=== PATIENT | male | born 1975 | race Two or more races ===

== ENCOUNTER → 2020-03-24 | Emergency (ER) | payer MEDICAID, OTHER ==
[~2020-03-24] VITALS: Ht 190.5 cm; Wt 99.8 kg
[~2020-03-24] MED LIST: METO25TA5 PO
[2020-03-24 19:26] VITALS: BP 152/116
== END | disposition left against medical advice (07) ==
LOC: ER 19:20
DX: M25.551 Pain in right hip (principal); M25.552 Pain in left hip; Z53.21 Procedure and treatment not carried out due to patient leaving prior to being seen by health care provider

== ENCOUNTER 2020-03-26 15:42 | Emergency (ER) | payer OTHER ==
[~2020-03-26] VITALS: Ht 190.5 cm; Wt 104.3 kg
[2020-03-26] MEDS ORDERED: cloNIDine HCL 0.1 MG TAB ONE (15:57)
[2020-03-26] MEDS ORDERED: cloNIDine HCL 0.1 MG TAB PO ONE (16:00)
[2020-03-26] MEDS ORDERED: KETOROLAC TROMETH 60MG/2ML VIAL IM ONE (17:30)
[2020-03-26 18:20] VITALS: BP 144/112
[2020-03-26] MEDS ORDERED: METO25TA5 PO (18:34)
== END 2020-03-26 18:41 | disposition home or self-care (01) ==
LOC: ER 15:42
DX: M54.16 Radiculopathy, lumbar region (principal); I10 Essential (primary) hypertension
CPT/HCPCS: 72100; 96372; 99283; J1885

== ENCOUNTER 2020-09-13 16:37 | Emergency (ER) | payer MEDICAID, OTHER ==
[~2020-09-13] VITALS: Ht 190.5 cm; Wt 108.9 kg
[2020-09-13 19:26] VITALS: BP 147/94
== END 2020-09-13 19:48 | disposition home or self-care (01) ==
LOC: ER 16:37
DX: U07.1 COVID-19 (principal); J02.9 Acute pharyngitis, unspecified; J06.9 Acute upper respiratory infection, unspecified; I10 Essential (primary) hypertension
CPT/HCPCS: 36415; 71045; 87426; 99284; U0003

== ENCOUNTER 2021-03-03 17:49 | Emergency (ER) | payer MEDICAID ==
[~2021-03-03] VITALS: Ht 190.5 cm; Wt 99.8 kg
[2021-03-03 19:56] VITALS: BP 158/109
== END 2021-03-03 20:07 | disposition home or self-care (01) ==
LOC: ER 17:49
DX: J06.9 Acute upper respiratory infection, unspecified (principal); I10 Essential (primary) hypertension; Z20.822 Contact with and (suspected) exposure to COVID-19
CPT/HCPCS: 36415; 71045; 87426

== ENCOUNTER 2021-09-25 23:02 | Emergency (ER) | payer MEDICAID ==
[~2021-09-25] VITALS: Ht 190.5 cm; Wt 99.8 kg
[2021-09-26 02:10] VITALS: BP 158/112
== END 2021-09-26 02:49 | disposition home or self-care (01) ==
LOC: ER 23:02
DX: J06.9 Acute upper respiratory infection, unspecified (principal); I10 Essential (primary) hypertension; Z20.822 Contact with and (suspected) exposure to COVID-19
CPT/HCPCS: 36415; 87426

== ENCOUNTER 2023-06-01 15:58 | Emergency (ER) | payer MEDICAID ==
[~2023-06-01] VITALS: Ht 190.5 cm; Wt 104.0 kg
[2023-06-01 16:19] VITALS: BP 130/87; PULSE 86; RESP 22; O2SAT 94
[2023-06-01] MEDS ORDERED: ACETAMINOPHEN 500 MG TAB PO ONE (16:30)
[2023-06-01 16:45] VITALS: TEMP 101.1
== END 2023-06-01 18:35 | disposition left against medical advice (07) ==
LOC: EDBD 15:58 → ER 15:58
DX: R50.9 Fever, unspecified (principal); M79.10 Myalgia, unspecified site; R53.83 Other fatigue; Z53.21 Procedure and treatment not carried out due to patient leaving prior to being seen by health care provider

== ENCOUNTER 2024-03-04 23:52 | Emergency (ER) | payer MEDICAID ==
[~2024-03-04] VITALS: Ht 190.5 cm; Wt 113.3 kg
[2024-03-05 00:16] VITALS: TEMP 97.8; O2SAT 98
[2024-03-05] MEDS ORDERED: CYCL-611 PO (00:48)
[2024-03-05] MEDS ORDERED: HYDR-4902 PO (00:48)
[2024-03-05] MEDS: DexAMETHasone SOD PHOS 10MG/1ML VIAL INJ IM ONE (03:06)
[2024-03-05 03:08] VITALS: BP 126/86; PULSE 87; RESP 18
[2024-03-05] MEDS: MORPHINE SULFATE INJ 2 MG/ml SYRG IM ONE (03:08)
== END 2024-03-05 03:11 | disposition home or self-care (01) ==
LOC: ER 23:52
DX: G89.29 Other chronic pain (principal); M54.50 Low back pain, unspecified; I10 Essential (primary) hypertension; M62.830 Muscle spasm of back
CPT/HCPCS: 96372; 99284; J1100; J2270

== ENCOUNTER 2024-04-23 04:59 | Emergency (ER) | payer BC, MEDICAID ==
[~2024-04-23] VITALS: Ht 190.5 cm; Wt 113.6 kg
[~2024-04-23 04:59] MED LIST changes: +CYCL-611 PO; +HYDR-4902 PO
[2024-04-23 05:22] VITALS: BP 137/96; PULSE 89; RESP 18; TEMP 97.9; O2SAT 97
[2024-04-23] MEDS ORDERED: CYCL-611 PO (07:41)
[2024-04-23] MEDS ORDERED: HYDR-4902 PO (07:41)
== END 2024-04-23 07:46 | disposition home or self-care (01) ==
LOC: ER 04:59
DX: G89.29 Other chronic pain (principal); M54.59 Other low back pain; I10 Essential (primary) hypertension; Z79.899 Other long term (current) drug therapy

== ENCOUNTER 2024-12-08 20:46 | Emergency (ER) | payer BC, MEDICAID ==
[~2024-12-08] VITALS: Ht 190.5 cm; Wt 123.2 kg
[2024-12-08 21:10] LABS: Urine Bacteria None Seen /hpf (None Seen)
--- NOTE | 2024-12-08 21:35 | DVH ---
Exam: CT CT AB PEL WO CON-NO ORAL OR IV History: flank pain Comparison Study: None available at time of dictation. TECHNIQUE: Multidetector CT of the abdomen was performed from lung bases to pubic symphysis. Imaging was performed without IV contrast. Axial, coronal and sagittal multiplanar reformats were obtained fr om the axial data set by the technologist. Radiation Dose Information: CT Dose: CTDI volume is 22.35 mGy. Dose-length product is 1570.13 mGy*cm FINDINGS: Evaluation of solid organs is limited due to lack of intravenous contrast use. Findings: Lung Bases: No acute or significant lung base finding. Normal heart size. No pleural or pericardial effusion. Liver: The liver is normal in size. No focal lesions. Gallbladder and Biliary Tree: Unremarkable Spleen: Unremarkable Pancreas: The pancreas is grossly normal in appearance. Adrenal Glands: Unremarkable Kidneys: Kidneys are grossly normal without calculi or hydronephrosis. Small 2.4 cm cortical cysts le ft kidney Bladder: Grossly unremarkable for degree of distention. Bowel: Stomach is distended with food and liquid. Abnormally distended small bowel or colon. Can not exclude gastric outlet obstruction or gastroparesis.. Small bowel and colon are normal in caliber and distribution. The appendix is not visualized; however, no secondary findings of acute appendicitis identified. Ascites: Absent Lymphadenopathy: No mesenteric, retroperitoneal or periportal lymphadenopathy. Abdominal Wall and Mesentery: Unremarkable. Vasculature: The visualized abdominal aorta is normal in size and caliber. Evaluation of abdominal a nd pelvic vessels is limited due to lack of intravenous contrast. Pelvic Organs: Unremarkable Musculoskeletal: No aggressive focal bony lesions, acute fractures or dislocation. Pedicle screws and rods in place in the lower lumbar spine (L2-S1) Soft tissues: Unremarkable IMPRESSION: 1. Food and liquid distended stomach consistent either with gastric outlet obstruction or gastropares is. 2. There is no abnormal distention of the small bowel or colon Radiation optimization: All CT scans at this facility use at least one of these dose optimization campbell hniques: automated exposure control mA and/or kV adjustment per patient size (includes targeted exam s where dose is matched to clinical indication) or iterative reconstruction.
[2024-12-08 21:49] LABS: Alanine Aminotransferase 33 U/L (7-40); Albumin 4.3 g/dL (3.2-4.8); Anion Gap 8 (5-15); Aspartate Aminotransferase 27 U/L (13-40); BUN/Creatinine Ratio 10.3 (10.0-20.0); Bilirubin, Total 0.5 mg/dL (0.2-1.0); Blood Urea Nitrogen 14 mg/dL (9-23); Calcium 9.7 mg/dL (8.7-10.4); Carbon Dioxide 21 mmol/L (20-31); Lipase 31 U/L (12-53); Potassium 4.1 mmol/L (3.5-5.1); Sodium 140 mmol/L (136-145); Total Protein 7.3 g/dL (5.7-8.2)
[2024-12-08 21:56] LABS: Alkaline Phosphatase 154 U/L (46-116); Chloride 111 mmol/L (98-107); Glucose 115 mg/dL (74-106)
[2024-12-08 22:01] LABS: Urine Blood Negative /uL (Negative); Urine Clarity Clear (Clear); Urine Color Yellow (Yellow); Urine Hyaline Cast FEW /lpf (0 - 2); Urine Protein, UAD TRACE (Negative); Urine Specific Gravity 1.035 (1.001-1.035); Urine Squamous Epithelial Cell None Seen /hpf (<5); Urine Urobilinogen 3 mg/dL (Negative); Urine WBC 1 /HPF (0-3); Urine pH 5.5 (5.0-9.0)
[2024-12-08 22:05] LABS: Basophils # (auto) 0 10 ^3/uL (0-0.2); Basophils % (auto) 0.3 % (0.0-2.0); Eosinophils # (auto) 0.4 10 ^3/uL (0-0.8); Eosinophils % (auto) 5.3 % (0.0-7.0); Hematocrit 44.9 % (41.0-53.0); Hemoglobin 14.7 g/dL (13.5-17.5); Lymphocytes # (auto) 2.3 10 ^3/uL (0.4-5.4); Lymphocytes % (auto) 33.7 % (10.0-50.0); Mean Corpuscular Hemoglobin 24.4 pg (28.0-32.0); Mean Corpuscular Hgb Conc. 32.7 g/dL (32.0-36.0); Mean Corpuscular Volume 74.5 fL (80.0-100.0); Monocytes # (auto) 0.5 10 ^3/uL (0-1.3); Monocytes % (auto) 7.4 % (0.0-12.0); Neutrophils # (auto) 3.6 10 ^3/uL (1.6-8.6); Neutrophils % (auto) 53.3 % (37.0-80.0); Nucleated Red Blood Cells % 0.2 %; Platelet Count (auto) 236 10^3/uL (140-450); Red Blood Cells 6.03 10^6/uL (4.5-5.90); Red Cell Distribution Width 19.3 % (11.8-14.3); White Blood Cell 6.8 10^3/uL (4.4-10.8)
[2024-12-08] MEDS ORDERED: ZOFR4T PO (23:11)
[2024-12-08] MEDS ORDERED: OMEP-434 PO (23:11)
--- NOTE | 2024-12-08 23:12 | ED.PDOC ---
GI ASSESSMENT HPI Comments 49-year-old male complaining bilateral flank pain x1 week. States the pain has been getting worse and now radiating into his right testicle region. Denies any trauma to the testicle. Denies any nausea vomiting. Says he has noticed some mild indigestion. Nothing makes it better, nothing makes it worse. Chief Complaint: Flank Pain Time Seen by MD: 20:51 Primary Care Provider: None Reviewed Notes: Nurses Notes Allergies: Coded Allergies: NO KNOWN ALLERGIES (Unverified , 03/24/20) Home Meds Active Scripts Cyclobenzaprine HCl (Cyclobenzaprine Hydrochlo) 10 Mg Tab, 1 TAB PO Q8HPRN PRN, #15 TAB as needed for muscle spasm Prov:MEG BETANCOURT SINK CUTTER 04/23/24 Hydrocodone-Acetaminophen (Hydrocodone Bitartrate/AC 5-325 mg) 1 Tab Tab, 1 TAB PO Q6HPRN PRN, #10 TAB as needed for pain Prov:MEG BETANCOURT SINK CUTTER 04/23/24 Reported Medications Metoprolol Tartrate (Metoprolol Tartrate) 25 Mg Tab, 50 MG PO, TAB 03/26/20 Information Source: Patient Mode of Arrival: Ambulatory Past Medical History PAST MEDICAL HISTORY: HTN Surgical History: Denies all surgeries Family History Family History: Unknown Social History Smoker: Non-Smoker Alcohol: Denies ETOH Use Drugs: Denies Drug Use Lives In: Home Constitutional: denies: chills, diaphoresis, fatigue, fever, malaise, sweats, weakness, others EENTM: denies: blurred vision, double vision, ear bleeding, ear discharge, ear drainage, ear pain, ear ringing, eye pain, eye redness, hearing loss, mouth pain, mouth swelling, nasal discharge, nose bleeding, nose congestion, nose pain, photophobia, tearing, throat pain, throat swelling, voice changes, others Respiratory: denies: cough, hemoptysis, orthopnea, SOB at rest, shortness of breath, SOB with excertion, stridor, wheezing, others Cardiovascular: denies: chest pain, dizzy spells, diaphoresis, Dyspnea on exertion, edema, irregular heart beat, left arm pain, lightheadedness, palpitations, PND, syncope, others Gastrointestinal: denies: abdomen distended, abdominal pain, blood streaked bowels, constipated, diarrhea, dysphagia, difficulty swallowing, hematemesis, melena, nausea, poor appetite, poor fluid intake, rectal bleeding, rectal pain, vomiting, others Genitourinary: reports: flank pain, testicle pain; denies: burning, dysuria, frequency, hematuria, incontinence, penile discharge, penile sore, pain, urgency, others Neurological: denies: dizziness, fainting, headache, left sided numbness, left sided weakness, numbness, paresthesia, pre-existing deficit, right sided numbness, right sided weakness, seizure, speech problems, tingling, tremors, weakness, others Musculoskeletal: denies: back pain, gout, joint pain, joint swelling, muscle pain, muscle stiffness, neck pain, others Integumetry: denies: bruises, change in color, change in hair/nails, dryness, laceration, lesions, lumps, rash, wounds, others Physical Exam General Appearance: No Apparent Distress, Normal HEENT: Normal ENT Inspection, Pharynx Normal, TMs Normal Neck: Full Range of Motion, Non-Tender, Normal, Normal Inspection Respiratory: Chest Non-Tender, Lungs Clear, No Accessory Muscle Use, No Respiratory Distress, Normal Breath Sounds Cardiovascular: No Edema, No JVD, No Murmur, No Gallop, Normal Peripheral Pulses, Regular Rate/Rhythm Breast Exam: Deferred Gastrointestinal: No Organomegaly, Non Tender, No Pulsatile Mass, Normal Bowel Sounds, Soft Genitalia: Deferred Pelvic: Deferred Rectal: Deferred Extremities: No calf tenderness, Normal capillary refill, Normal inspection, Normal range of motion, Non-tender, No pedal edema Musculoskeletal : Apperance: Normal Neurologic: Alert, cat scan technologist II-XII nml as Tested, No Motor Deficits, Normal Affect, Normal Mood, No Sensory Deficits Cerebellar Function: Normal Reflexes: Normal Skin: Dry, Normal Color, Warm Lymphatic: No Adenopathy Was a procedure done? Was a procedure done?: No GI differential Dx Differential Diagnosis: Bowel Obstruction, Cholangitis, Cholecystitis, Constipation, Gastroenteritis, Urinary Obstruction, UTI X-Ray, Labs, Meds, VS Vital Signs Date Time Temp Pulse Resp B/P (MAP) Pulse Ox O2 Delivery O2 Flow Rate FiO2 12/08/24 20:58 97.9 98 18 135/85 (102) 98 Lab Test 12/08/24 21:23 12/08/24 20:55 Range/Units White Blood Count 6.8 4.4-10.8 10^3/uL Red Blood Count 6.03 H 4.5-5.90 10^6/uL Hemoglobin 14.7 13.5-17.5 g/dL Hematocrit 44.9 41.0-53.0 % Mean Corpuscular Volume 74.5 L 80.0-100.0 fL Mean Corpuscular Hemoglobin 24.4 L 28.0-32.0 pg Mean Corpuscular Hemoglobin Concent 32.7 32.0-36.0 g/dL Red Cell Distribution Width 19.3 H 11.8-14.3 % Platelet Count 236 140-450 10^3/uL Mean Platelet Volume 9.8 6.9-10.8 fL Neutrophils (%) (Auto) 53.3 37.0-80.0 % Lymphocytes (%) (Auto) 33.7 10.0-50.0 % Monocytes (%) (Auto) 7.4 0.0-12.0 % Eosinophils (%) (Auto) 5.3 0.0-7.0 % Basophils (%) (Auto) 0.3 0.0-2.0 % Neutrophils # (Auto) 3.6 1.6-8.6 10 ^3/uL Lymphocytes # (Auto) 2.3 0.4-5.4 10 ^3/uL Monocytes # (Auto) 0.5 0-1.3 10 ^3/uL Eosinophils # (Auto) 0.4 0-0.8 10 ^3/uL Basophils # (Auto) 0 0-0.2 10 ^3/uL Nucleated Red Blood Cells 0.2 % Sodium Level 140 136-145 mmol/L Potassium Level 4.1 3.5-5.1 mmol/L Chloride Level 111 H 98-107 mmol/L Carbon Dioxide Level 21 20-31 mmol/L Anion Gap 8 5-15 Blood Urea Nitrogen 14 9-23 mg/dL Creatinine 1.36 H 0.700-1.30 mg/dL Glomerular Filtration Rate Calc 65 >90 mL/min BUN/Creatinine Ratio 10.3 10.0-20.0 Serum Glucose 115 H 74-106 mg/dL Calcium Level 9.7 8.7-10.4 mg/dL Total Bilirubin 0.5 0.2-1.0 mg/dL Aspartate Amino Transferase (AST) 27 13-40 U/L Alanine Aminotransferase (ALT) 33 7-40 U/L Alkaline Phosphatase 154 H 46-116 U/L Total Protein 7.3 5.7-8.2 g/dL Albumin 4.3 3.2-4.8 g/dL Lipase 31 12-53 U/L Urine Color Yellow Yellow Urine Clarity Clear Clear Urine pH 5.5 5.0-9.0 Urine Specific [place] 1.035 1.001-1.035 Urine Protein Trace H Negative Urine Ketones Trace Negative Urine Blood Negative Negative /uL Urine Nitrite Negative Negative Urine Bilirubin Negative Negative Urine Urobilinogen 3 H Negative mg/dL Urine Leukocyte Esterase Negative Negative /uL Urine RBC 1 0 - 3 /hpf Urine Microscopic WBC 1 0-3 /HPF Urine Squamous Epithelial Cells None seen <5 /hpf Urine Bacteria None seen None Seen /hpf Urine Hyaline Casts Few 0 - 2 /lpf Urine Glucose Normal Normal mg/dL X-Ray, Labs, Meds, VS Comment Imaging: X-rays and CT scans were reviewed and interpreted by this provider, imaging shows no fractures and no pathological disease. Pending radiology rev iew. Laboratory: Labs reviewed and interpreted by this provider. No significant abnormalities noted. Patient has prior medical visits reviewed. Med reconciliation performed Vital signs reviewed Time of 1ST Reevaluation: 23:12 Reevaluation 1ST: Improved Patient Education/Counseling: Diagnosis, Treatment, Need For Follow Up (Patient advised to follow-up in the emergency room in the next 24 to 48 hours if symptoms do not improve. Advised follow-up with PCP in the next 3 to 5 days. Patient verbalized understanding. ) Family Education/Counseling: Diagnosis, Treatment Departure 1 Departure Time of Disposition: 23:10 Impression: Primary Impression: Gastritis Qualified Codes: K29.60 - Other gastritis without bleeding Disposition: HOME / SELF CARE / HOMELESS Condition: Fair e-Prescriptions Ondansetron Odt 4MG Tab (ZOFRAN PO) 4 Mg Tb 4 MG PO TID PRN, #20 TAB ODT TAB-DISSOLVE IN MOUTH, THEN SWALLOW Prov: LUCA MILLER 12/08/24 Omeprazole Magnesium (Omeprazole) 20 Mg Tab 20 MG PO DAILY, #20 TAB Prov: LUCA MILLER 12/08/24 Discharged With: Self Critical Care Note Critical Care Time?: No Stability Stability form required: No Heart Score Heart Score: Heart Score Response (Comments) Value History N/A 0 EKG N/A 0 Age N/A 0 Risk Factors N/A 0 Troponin N/A 0 Total 0 LUCA MILLER [employer] MANAGER Dec 08, 2024 23:12
[2024-12-08 23:32] VITALS: BP 133/96; PULSE 91; RESP 16; TEMP 97.8; O2SAT 98
== END 2024-12-08 23:34 | disposition home or self-care (01) ==
LOC: ER 20:46
DX: K29.70 Gastritis, unspecified, without bleeding (principal); I10 Essential (primary) hypertension; Z79.899 Other long term (current) drug therapy
CPT/HCPCS: 36415; 74176; 80053; 81001; 83690; 85025

== ENCOUNTER 2025-01-10 14:23 | Emergency (ER) | payer MEDICAID ==
[~2025-01-10] VITALS: Ht 190.5 cm; Wt 118.5 kg
[~2025-01-10 14:23] MED LIST changes: +OMEP-434 PO; +ZOFR4T PO
--- NOTE | 2025-01-10 14:44 | ED.PDOC ---
General HPI Comments 49 year old male presents to the ED with chief complaint of testicular pain. Patient reports that he has been experiencing right sided testicular pain for the past 2 weeks with associated flu-like symptoms of cough and congestion. Patient denies any injury, hematuria, dysuria, urinary frequency, abdominal pain, or fever. Chief Complaint: Testicle Pain Time Seen by MD: 14:42 Primary Care Provider: DR SWEET Reviewed notes: Nurses Notes, Medications, Allergies Allergies: Coded Allergies: NO KNOWN ALLERGIES (Unverified , 03/24/20) Home Meds Active Scripts Ondansetron Odt 4MG Tab (ZOFRAN PO) 4 Mg Tb, 4 MG PO TID PRN, #20 TAB ODT TAB-DISSOLVE IN MOUTH, THEN SWALLOW Prov:LUCA MILLER 12/08/24 Omeprazole Magnesium (Omeprazole) 20 Mg Tab, 20 MG PO DAILY, #20 TAB Prov:LUCA MILLER 12/08/24 Cyclobenzaprine HCl (Cyclobenzaprine Hydrochlo) 10 Mg Tab, 1 TAB PO Q8HPRN PRN, #15 TAB as needed for muscle spasm Prov:MEG BETANCOURT LYE PEEL OPERATOR 04/23/24 Hydrocodone-Acetaminophen (Hydrocodone Bitartrate/AC 5-325 mg) 1 Tab Tab, 1 TAB PO Q6HPRN PRN, #10 TAB as needed for pain Prov:MEG BETANCOURT LYE PEEL OPERATOR 04/23/24 Reported Medications Metoprolol Tartrate (Metoprolol Tartrate) 25 Mg Tab, 50 MG PO, TAB 03/26/20 Information Source: Patient Mode of Arrival: Wheelchair Severity: Moderate Inability to void: None Timing: Weeks Duration: Since onset Prehospital treatment: None Onset: Spontaneous Symptoms: None History of: None Location male: R Scrotum Penile discharge: None Modifying factors: None Past Medical History PAST MEDICAL HISTORY: HTN Surgical History: Denies all surgeries Family History Family History: Unknown Social History Smoker: Non-Smoker Alcohol: Denies ETOH Use Drugs: Denies Drug Use Lives In: Home Constitutional: denies: chills, diaphoresis, fatigue, fever, malaise, sweats, weakness, others EENTM: reports: nose congestion; denies: blurred vision, double vision, ear bleeding, ear discharge, ear drainage, ear pain, ear ringing, eye pain, eye redness, hearing loss, mouth pain, mouth swelling, nasal discharge, nose bleeding, nose pain, photophobia, tearing, throat pain, throat swelling, voice changes, others Respiratory: reports: cough; denies: hemoptysis, orthopnea, SOB at rest, shortness of breath, SOB with excertion, stridor, wheezing, others Cardiovascular: denies: chest pain, dizzy spells, diaphoresis, Dyspnea on exertion, edema, irregular heart beat, left arm pain, lightheadedness, palpitations, PND, syncope, others Gastrointestinal: denies: abdomen distended, abdominal pain, blood streaked bowels, constipated, diarrhea, dysphagia, difficulty swallowing, hematemesis, melena, nausea, poor appetite, poor fluid intake, rectal bleeding, rectal pain, vomiting, others Genitourinary: reports: testicle pain; denies: burning, dysuria, flank pain, frequency, hematuria, incontinence, penile discharge, penile sore, pain, testicle swelling, urgency, others Neurological: denies: dizziness, fainting, headache, left sided numbness, left sided weakness, numbness, paresthesia, pre-existing deficit, right sided numbness, right sided weakness, seizure, speech problems, tingling, tremors, weakness, others Musculoskeletal: denies: back pain, gout, joint pain, joint swelling, muscle pain, muscle stiffness, neck pain, others Integumetry: denies: bruises, change in color, change in hair/nails, dryness, laceration, lesions, lumps, rash, wounds, others Allergic/Immunocompromised: denies: Difficulty Healing, Frequent Infections, Hives, Itching, others Hematologic/Lymphatic: denies: anemia, blood clots, easy bleeding, easy bruising, swollen glands, others Endocrine: denies: excessive hunger, excessive sweating, excessive thirst, excessive urination, flushing, intolerance to cold, intolerance to heat, unexplained weight gain, unexplained weight loss, others Psychiatric: denies: anxiety, bipolar disorder, depression, hopeless, panic disorder, schizophrenia, sleepless, suicidal, others All Other Systems: Reviewed and Negative Physical Exam General Appearance: Moderate Distress, Normal HEENT: Normal ENT Inspection, PERRL/EOMI Neck: Full Range of Motion, Non-Tender, Normal, Normal Inspection Respiratory: Chest Non-Tender, Lungs Clear, No Accessory Muscle Use, No Respiratory Distress, Normal Breath Sounds Cardiovascular: No Edema, No JVD, No Murmur, No Gallop, Normal Peripheral Pulses, Regular Rate/Rhythm Breast Exam: Deferred Gastrointestinal: No Organomegaly, Non Tender, No Pulsatile Mass, Normal Bowel Sounds, Soft Genitalia: Deferred Pelvic: Deferred Rectal: Deferred Extremities: No calf tenderness, Normal capillary refill, Normal inspection, Normal range of motion, Non-tender, No pedal edema Musculoskeletal : Apperance: Normal Neurologic: Alert, multimedia author II-XII nml as Tested, No Motor Deficits, Normal Affect, Normal Mood, No Sensory Deficits Cerebellar Function: NOT DONE Reflexes: NOT DONE Skin: Dry, Normal Color, Warm Peripheral Pulses: 3+ Radial (R), 3+ Radial (L) Lymphatic: No Adenopathy Was a procedure done? Was a procedure done?: No Differential Diagnosis Kidney stone (Female): Musculoskeletal pain, Urinary obstruction, Urolithiasis X-Ray, Labs, Meds, VS Vital Signs Date Time Temp Pulse Resp B/P (MAP) Pulse Ox O2 Delivery O2 Flow Rate FiO2 01/10/25 14:35 97.9 100 20 114/69 (84) 98 Patient alert. Vitals stable. Answering all questions. Moving all extremities. Stating that he has discomfort in his testicle. Testicle ultrasound does not reveal any acute process. Hydrocele. There is a solid mass seen on the testicle. He was told to follow up with Urology. There is no torsion. Good flow. He is relieved with pain medication. He was given prescription of Motrin. Explained to the patient. Was told to follow up with his primary care physician. Was told to come back if there is any problem. Testicular US: FINDINGS: The right testicle measures 4 cm. The left testicle measures 4 cm. Both testicles demonstrate homogeneous echotexture without evidence of focal lesions. Bilateral testicular flow is seen. Moderate bilateral hydroceles. There is a nonspecific 4 mm exophytic solid mass seen on the right testicle. IMPRESSION: 1. nonspecific 4 mm exophytic solid mass seen on the right testicle.. Time of 1ST Reevaluation: 15:42 Reevaluation 1ST: Unchanged Time of 2ND Reevaluation: 16:01 Reevaluation 2ND: Improved Patient Education/Counseling: Diagnosis, Treatment Family Education/Counseling: No Family Present Additional Information The following tests were ordered, and results were reviewed by me: Testicular US Additional Information was gathered from interviewing the following independent historians: None I reviewed and agreed with the following test results read by other providers: Testicular US I discussed treatment and results with medical personnel. Departure 1 Departure Time of Disposition: 15:15 Impression: Primary Impression: Hydrocele Qualified Codes: N43.3 - Hydrocele, unspecified Additional Impression: Inguinal strain Qualified Codes: S76.212A - Strain of adductor muscle, fascia and tendon of left thigh, initial encounter Disposition: HOME / SELF CARE / HOMELESS Condition: Good e-Prescriptions Ibuprofen Micronized (MOTRIN TABLET) 600 Mg Tb 600 MG PO TID PRN for 3 Days, #9 TAB *Black box warning-NSAIDS can increase risk of [place] & hypertension, GI irritation, ulceration, bleed, perferation. Do not use post cardiac surgery. Use short duration/lowest effective dose. Prov: TEREZA GARCIA MD 01/10/25 Discharged With: Self Critical Care Note Critical Care Time?: No Stability Stability form required: No Heart Score Heart Score: Heart Score Response (Comments) Value History N/A 0 EKG N/A 0 Age N/A 0 Risk Factors N/A 0 Troponin N/A 0 Total 0 I personally scribed for TEREZA GARCIA MD ([email or web address]) on 01/10/25 at 14:44. Electronically submitted by Reagan Hughes ([email or web address]). I personally scribed for TEREZA GARCIA MD ([email or web address]) on 01/10/25 at 15:38. Electronically submitted by Reagan Hughes ([email or web address]). I personally scribed for TEREZA GARCIA MD ([email or web address]) on 01/10/25 at 15:43. Electronically submitted by Reagan Hughes ([email or web address]). TEREZA GARCIA MD Jan 10, 2025 14:44
--- NOTE | 2025-01-10 15:39 | DVH ---
ULTRASOUND OF SCROTUM AND CONTENTS. INDICATION: ruleouttorsion COMPARISON: None TECHNIQUE: Multiple real-time grayscale sonographic and color and duplex Doppler images of the scrotu m and its contents were obtained. FINDINGS: The right testicle measures 4 cm. The left testicle measures 4 cm. Both testicles demonstrate homogeneous echotexture without evidence of focal lesions. Bilateral testicular flow is seen. Moderate bilateral hydroceles. There is a nonspecific 4 mm exophyt ic solid mass seen on the right testicle. IMPRESSION: 1. nonspecific 4 mm exophytic solid mass seen on the right testicle..
[2025-01-10] MEDS ORDERED: IBU600T PO (16:02)
[2025-01-10] MEDS: HYDROcodone-ACET 10/325MG TAB PO ONE (16:24)
[2025-01-10 16:26] VITALS: BP 126/76; PULSE 84; RESP 18; TEMP 98.3; O2SAT 97
== END 2025-01-10 16:33 | disposition home or self-care (01) ==
LOC: ER 14:23
DX: S39.011A Strain of muscle, fascia and tendon of abdomen, initial encounter (principal); N43.3 Hydrocele, unspecified; I10 Essential (primary) hypertension; R05.9 Cough, unspecified; Z79.899 Other long term (current) drug therapy; X58.XXXA Exposure to other specified factors, initial encounter; Y93.89 Activity, other specified; Y92.89 Other specified places as the place of occurrence of the external cause; Y99.8 Other external cause status
CPT/HCPCS: 76870

== ENCOUNTER 2025-01-12 01:01 | Emergency (ER) | payer MEDICAID ==
[~2025-01-12] VITALS: Ht 190.5 cm; Wt 116.5 kg
[~2025-01-12 01:01] MED LIST changes: +IBU600T PO
--- NOTE | 2025-01-12 01:25 | ED.PDOC ---
SOB-HPI HPI Comments 49-year-old male came to emergency room due to flu-like symptoms. Patient has been having flu-like symptoms since yesterday. It has been having productive cough, congestion, throat pain, chest tightness and shortness of breath. Saturating may be 94% on room air Chief Complaint: Flu like Time Seen by MD: 01:24 Primary Care Provider: DR SWEET Reviewed notes: Nurses Notes Information Source: Patient Mode of Arrival: Ambulatory Severity: Moderate Timing: Hours Duration: Intermittent Context: At Rest, With Light Exertion PE Risk Factors: None History of: None Prehospital treatment: None Associated Signs and Symptoms: Wheeze, Cough, Nasal Congestion, Sore Throat, Chest Pain Past Medical History PAST MEDICAL HISTORY: HTN Surgical History: Denies all surgeries Family History Family History: Unknown Social History Smoker: Non-Smoker Alcohol: Denies ETOH Use Drugs: Denies Drug Use Lives In: Home Constitutional: reports: fatigue, weakness; denies: chills, diaphoresis, fever, malaise, sweats, others EENTM: reports: nose congestion, throat pain; denies: blurred vision, double vision, ear bleeding, ear discharge, ear drainage, ear pain, ear ringing, eye pain, eye redness, hearing loss, mouth pain, mouth swelling, nasal discharge, nose bleeding, nose pain, photophobia, tearing, throat swelling, voice changes, others Respiratory: reports: cough, SOB at rest, shortness of breath; denies: h emoptysis, orthopnea, SOB with excertion, stridor, wheezing, others Cardiovascular: reports: chest pain; denies: dizzy spells, diaphoresis, Dyspnea on exertion, edema, irregular heart beat, left arm pain, lightheadedness, palpitations, PND, syncope, others Gastrointestinal: denies: abdomen distended, abdominal pain, blood streaked bowels, constipated, diarrhea, dysphagia, difficulty swallowing, hematemesis, melena, nausea, poor appetite, poor fluid intake, rectal bleeding, rectal pain, vomiting, others Genitourinary: denies: burning, dysuria, flank pain, frequency, hematuria, incontinence, penile discharge, penile sore, pain, testicle pain, testicle swelling, urgency, others Neurological: denies: dizziness, fainting, headache, left sided numbness, left sided weakness, numbness, paresthesia, pre-existing deficit, right sided numbness, right sided weakness, seizure, speech problems, tingling, tremors, we akness, others Musculoskeletal: reports: back pain; denies: gout, joint pain, joint swelling, muscle pain, muscle stiffness, neck pain, others Integumetry: denies: bruises, change in color, change in hair/nails, dryness, laceration, lesions, lumps, rash, wounds, others Allergic/Immunocompromised: denies: Difficulty Healing, Frequent Infections, Hives, Itching, others Physical Exam General Appearance: No Apparent Distress, Normal HEENT: Normal ENT Inspection, Pharynx Normal, TMs Normal Neck: Full Range of Motion, Non-Tender, Normal, Normal Inspection Respiratory: Chest Non-Tender, Lungs Clear, No Accessory Muscle Use, No Respiratory Distress, Normal Breath Sounds Cardiovascular: No Edema, No JVD, No Murmur, No Gallop, Normal Peripheral Pulses, Regular Rate/Rhythm Breast Exam: Deferred Gastrointestinal: No Organomegaly, Non Tender, No Pulsatile Mass, Normal Bowel Sounds, Soft Genitalia: Deferred Pelvic: Deferred Rectal: Deferred Extremities: No calf tenderness, Normal capillary refill, Normal inspection, Normal range of motion, Non-tender, No pedal edema Musculoskeletal : Apperance: Normal Neurologic: Alert, employee benefits coordinator II-XII nml as Tested, No Motor Deficits, Normal Affect, Normal Mood, No Sensory Deficits Cerebellar Function: Normal Reflexes: Normal Skin: Dry, Normal Color, Warm Lymphatic: No Adenopathy Was a procedure done? Was a procedure done?: No Differential Dx Differential Diagnosis: Asthma, Bronchitis, Pneumonia, Respiratory Distress, URI, Other (COVID-19. Influenza) X-Ray, Labs, Meds, VS Vital Signs Date Time Temp Pulse Resp B/P (MAP) Pulse Ox O2 Delivery O2 Flow Rate FiO2 01/12/25 02:15 98.9 101 20 153/102 (119) 95 98.9 01/12/25 02:15 Room Air* 0 21 01/12/25 01:36 22 95 Room Air* 0 21 01/12/25 01:11 99.6 100 16 144/100 (115) 95 Lab Test 01/12/25 01:40 01/12/25 01:30 Range/Units Influenza Type A Antigen Negative Negative Influenza Type B Antigen Negative Negative White Blood Count 5.1 4.4-10.8 10^3/uL Red Blood Count 6.01 H 4.5-5.90 10^6/uL Hemoglobin 15.0 13.5-17.5 g/dL Hematocrit 45.1 41.0-53.0 % Mean Corpuscular Volume 75.0 L 80.0-100.0 fL Mean Corpuscular Hemoglobin 25.0 L 28.0-32.0 pg Mean Corpuscular Hemoglobin Concent 33.4 32.0-36.0 g/dL Red Cell Distribution Width 21.3 H 11.8-14.3 % Platelet Count 182 140-450 10^3/uL Mean Platelet Volume 9.9 6.9-10.8 fL Neutrophils (%) (Auto) 58.0 37.0-80.0 % Lymphocytes (%) (Auto) 30.7 10.0-50.0 % Monocytes (%) (Auto) 10.9 0.0-12.0 % Eosinophils (%) (Auto) 0.0 0.0-7.0 % Basophils (%) (Auto) 0.4 0.0-2.0 % Neutrophils # (Auto) 3.0 1.6-8.6 10 ^3/uL Lymphocytes # (Auto) 1.6 0.4-5.4 10 ^3/uL Monocytes # (Auto) 0.6 0-1.3 10 ^3/uL Eosinophils # (Auto) 0 0-0.8 10 ^3/uL Basophils # (Auto) 0 0-0.2 10 ^3/uL Nucleated Red Blood Cells 0.3 % Sodium Level 137 136-145 mmol/L Potassium Level 4.0 3.5-5.1 mmol/L Chloride Level 108 H 98-107 mmol/L Carbon Dioxide Level 18 L 20-31 mmol/L Anion Gap 11 5-15 Blood Urea Nitrogen 12 9-23 mg/dL Creatinine 1.35 H 0.700-1.30 mg/dL Glomerular Filtration Rate Calc 65 >90 mL/min BUN/Creatinine Ratio 8.9 L 10.0-20.0 Serum Glucose 121 H 74-106 mg/dL Calcium Level 9.4 8.7-10.4 mg/dL Total Bilirubin 0.3 0.2-1.0 mg/dL Aspartate Amino Transferase (AST) 19 13-40 U/L Alanine Aminotransferase (ALT) 22 7-40 U/L Alkaline Phosphatase 129 H 46-116 U/L Troponin I High Sensitivity 16 </=54 ng/L B-Type Natriuretic Peptide 12.23 0-100 pg/mL Total Protein 7.2 5.7-8.2 g/dL Albumin 4.4 3.2-4.8 g/dL Current Medications Medications (Trade) Dose Ordered Sig/Srinivasa Route Start Time Stop Time Status Last Admin Prednisone 40 mg ONCE ONCE PO 01/12/25 01:15 01/12/25 01:20 DC 01/12/25 02:24 Albuterol (Ventolin Medneb) 2.5 mg ONCE ONCE NEB 01/12/25 01:15 01/12/25 01:20 DC 01/12/25 01:29 Ipratropium Salvo (Atrovent Medneb) 0.5 mg ONCE ONCE NEB 01/12/25 01:15 01/12/25 01:20 DC 01/12/25 01:29 CHEST RADIOGRAPH Indication: SOB Technique: Single frontal view of the chest was obtained COMPARISON: CHEST XRAY 1 VIEW on DOS: 03/03/21, CHEST XRAY 1 VIEW on DOS: 09/13/20 FINDINGS: Lines and Tubes: None Lungs: Clear Pleura: No effusion. No pneumothorax. Cardiomediastinal contours: Unremarkable Bones: Unremarkable IMPRESSION: No acute disease. No significant change compared to the prior chest x-ray from February 2021. Time of 1ST Reevaluation: 01:14 Reevaluation 1ST: Unchanged Time of 2ND Reevaluation: 02:30 Reevaluation 2ND: Improved Patient Education/Counseling: Diagnosis, Treatment Family Education/Counseling: No Family Present Departure 1 Departure Time of Disposition: 01:30 Impression: Primary Impression: Upper respiratory infection Additional Impression: Bronchospasm Disposition: HOME / SELF CARE / HOMELESS Condition: Stable e-Prescriptions Azithromycin (Azithromycin) 500 Mg Tab 1 TAB PO DAILY for 7 Days, #7 TAB Prov: KAVITA LOPEZ MD 01/12/25 Prednisone (Prednisone) 20 Mg Tab 20 MG PO BID for 5 Days, #10 MG Prov: KAVITA LOPEZ MD 01/12/25 Albuterol Sulfate (Albuterol Sulfate Hfa) 108 Mcg/Act Aer 108 MCG IN Q4HP PRN for 10 Days, #1 AER Prov: KAIVTA LOPEZ MD 01/12/25 Discharged With: Self Critical Care Note Critical Care Time?: No Stability Stability form required: No Heart Score Heart Score: Heart Score Response (Comments) Value History Slightly Suspicious 0 EKG Normal 0 Age 45-64 1 Risk Factors No known risk factors 0 Troponin Normal limit 0 Total 1 I personally scribed for KAVITA LOPEZ MD ([email or web address]) on 01/12/25 at 01:25. Electronically submitted by Kel Haider ([email or web address]). I personally scribed for KAVITA LOPEZ MD ([email or web address]) on 01/12/25 at 02:39. Electronically submitted by Kel Haider ([email or web address]). KAVITA LOPEZ MD Jan 12, 2025 01:25
[2025-01-12] MEDS: ALBUTEROL SULF 2.5 MG/0.5ML(0.5%) NEB SOLN NEB ONE (01:29)
[2025-01-12] MEDS: IPRATROPIUM BROM 0.5 MG/2.5ML INH SOL NEB ONE (01:29)
--- NOTE | 2025-01-12 01:43 | DVH ---
CHEST RADIOGRAPH Indication: SOB Technique: Single frontal view of the chest was obtained COMPARISON: CHEST XRAY 1 VIEW on DOS: 03/03/21, CHEST XRAY 1 VIEW on DOS: 09/13/20 FINDINGS: Lines and Tubes: None Lungs: Clear Pleura: No effusion. No pneumothorax. Cardiomediastinal contours: Unremarkable Bones: Unremarkable IMPRESSION: No acute disease. No significant change compared to the prior chest x-ray from February 2021.
[2025-01-12 02:04] LABS: Basophils # (auto) 0 10 ^3/uL (0-0.2); Basophils % (auto) 0.4 % (0.0-2.0); Eosinophils # (auto) 0 10 ^3/uL (0-0.8); Lymphocytes # (auto) 1.6 10 ^3/uL (0.4-5.4); Monocytes # (auto) 0.6 10 ^3/uL (0-1.3); Red Blood Cells 6.01 10^6/uL (4.5-5.90)
[2025-01-12 02:06] LABS: Hematocrit 45.1 % (41.0-53.0); Lymphocytes % (auto) 30.7 % (10.0-50.0); Mean Corpuscular Hgb Conc. 33.4 g/dL (32.0-36.0); Monocytes % (auto) 10.9 % (0.0-12.0); Nucleated Red Blood Cells % 0.3 %; Platelet Count (auto) 182 10^3/uL (140-450); Red Cell Distribution Width 21.3 % (11.8-14.3); White Blood Cell 5.1 10^3/uL (4.4-10.8)
[2025-01-12 02:07] LABS: Alanine Aminotransferase 22 U/L (7-40); Albumin 4.4 g/dL (3.2-4.8); Alkaline Phosphatase 129 U/L (46-116); Anion Gap 11 (5-15); Aspartate Aminotransferase 19 U/L (13-40); BUN/Creatinine Ratio 8.9 (10.0-20.0); Blood Urea Nitrogen 12 mg/dL (9-23); Calcium 9.4 mg/dL (8.7-10.4); Carbon Dioxide 18 mmol/L (20-31); Chloride 108 mmol/L (98-107); Glucose 121 mg/dL (74-106); Sodium 137 mmol/L (136-145); Total Protein 7.2 g/dL (5.7-8.2)
[2025-01-12 02:12] LABS: Bilirubin, Total 0.3 mg/dL (0.2-1.0)
[2025-01-12 02:15] VITALS: BP 153/102; PULSE 101; RESP 20; TEMP 98.9; O2SAT 95
[2025-01-12] MEDS: predniSONE 20 MG TAB PO ONE (02:24)
[2025-01-12 02:43] LABS: Rapid Influenza A Negative (Negative); Rapid Influenza B Negative (Negative)
[2025-01-12] MEDS ORDERED: AZIT500T66 PO (03:14)
[2025-01-12] MEDS ORDERED: ALBU108A5 IN (03:14)
[2025-01-12] MEDS ORDERED: PRED20TA2 PO (03:14)
== END 2025-01-12 03:33 | disposition home or self-care (01) ==
LOC: ER 01:01
DX: J06.9 Acute upper respiratory infection, unspecified (principal); J98.01 Acute bronchospasm; I10 Essential (primary) hypertension; R05.9 Cough, unspecified
CPT/HCPCS: 36415; 71045; 80053; 83880; 84484; 85025; 87804; 94640; 99284; J7512